=== PATIENT | male | born 1980 | race Caucasian/White ===

== ENCOUNTER 2017-05-03 23:53 | Emergency (ER) | payer MEDICAID ==
[~2017-05-03] VITALS: Ht 177.8 cm; Wt 77.1 kg
[2017-05-04] VITALS: BP 124/89
[2017-05-04 00:12] LABS: Urine RBC None Seen /hpf (0 - 3)
[2017-05-04 00:17] LABS: Urine Bilirubin Negative (Negative); Urine Blood TRACE /uL (Negative); Urine Color Yellow (Yellow); Urine Glucose Normal (Normal); Urine Ketone TRACE (Negative); Urine Nitrite Negative (Negative); Urine Urobilinogen Normal (Negative)
== END 2017-05-04 01:10 | disposition left against medical advice (07) ==
LOC: ER 23:55
DX: F10.10 Alcohol abuse, uncomplicated (principal); K92.0 Hematemesis; Z53.21 Procedure and treatment not carried out due to patient leaving prior to being seen by health care provider
CPT/HCPCS: 80307; 81001; J7030

== ENCOUNTER 2017-05-04 11:04 | Emergency (ER) | payer MEDICAID ==
[~2017-05-04] VITALS: Ht 177.8 cm; Wt 47.6 kg
[2017-05-04] MEDS ORDERED: SODIUM CHLORIDE 0.9% 1,000 ML IV ONE (11:45)
[2017-05-04] MEDS ORDERED: LORazepam 2MG/ML-1ML VIAL IV ONE (11:45)
[2017-05-04 11:55] LABS: Basophils # (auto) 0 uL; Basophils % (auto) 0.4 % (0.0-2.0); Eosinophils # (auto) 0 uL; Hematocrit 43.3 % (41.0-53.0); Hemoglobin 15.3 g/dL (13.5-17.5); Lymphocytes # (auto) 0.3 uL; Lymphocytes % (auto) 2.4 % (10.0-50.0); Mean Corpuscular Hemoglobin 34.9 pg (28.0-32.0); Mean Corpuscular Hgb Conc. 35.4 g/dL (32.0-36.0); Mean Corpuscular Volume 98.6 fL (80.0-100.0); Mean Platelet Volume 7.8 fL (6.9-10.8); Neutrophils # (auto) 9.5 uL; Neutrophils % (auto) 88.2 % (37.0-80.0); Nucleated Red Blood Cells % 0.1 %; Red Cell Distribution Width 13.5 % (11.8-14.3); White Blood Cell 10.8 10^3/uL (4.4-10.8)
[2017-05-04] MEDS ORDERED: THIAMINE INJ 100 MG, MULTIPLE VITAMIN 10 ML, FOLIC ACID 1 MG, MAGNESIUM SULF SDV 50% 8 ... IV SCH ×5 (12:00)
[2017-05-04 12:15] LABS: Albumin 3.8 g/dL (3.4-5.0); BUN/Creatinine Ratio 6.9; Calcium 8.8 mg/dL (8.5-10.1); Potassium 3.3 mmol/L (3.5-5.1); Salicylate 1.8 mg/dL (2.8-20.0); Urine Bilirubin Negative (Negative); Urine Blood 2+ /uL (Negative); Urine Color Yellow (Yellow); Urine Glucose 1+ mg/dL (Normal); Urine Hyaline Cast MOD /lpf (0 - 2); Urine Ketone 2+ (Negative); Urine Mucus FEW (None Seen); Urine Nitrite Negative (Negative); Urine RBC 5 /hpf (0 - 3)
[2017-05-04 12:18] LABS: Bilirubin, Total 0.9 mg/dL (0.2-1.0); Total Protein 9.7 g/dL (6.4-8.2)
[2017-05-04 12:21] LABS: Acetaminophen < 2.0 ug/mL (10-30)
[2017-05-04 12:25] LABS: Platelet Count (auto) 36 10^3/uL (140-450)
[2017-05-04 12:28] LABS: Platelet Estimate Decreased
[2017-05-04 13:43] VITALS: BP 128/75
== END 2017-05-04 14:12 | disposition home or self-care (01) ==
LOC: ER 11:04
DX: F10.239 Alcohol dependence with withdrawal, unspecified (principal); Y90.8 Blood alcohol level of 240 mg/100 ml or more; F12.10 Cannabis abuse, uncomplicated; F17.210 Nicotine dependence, cigarettes, uncomplicated
CPT/HCPCS: 36415; 80053; 80307; 80320; 80329; 81001; 85025; 93005; 96365; 96366; 96375; 99285; J2060; J3411; J3475; J7030

== ENCOUNTER 2017-05-04 21:45 | Emergency (ER) | payer MEDICAID ==
[~2017-05-04] VITALS: Ht 177.8 cm; Wt 52.2 kg
[2017-05-04] MEDS ORDERED: LORazepam 2MG/ML-1ML VIAL ONE (22:10)
[2017-05-04] MEDS ORDERED: SODIUM CHLORIDE 0.9% 1,000 ML IVB ONE (22:25)
[2017-05-04] MEDS ORDERED: LORazepam 2MG/ML-1ML VIAL IV ONE ×2 (22:30→23:30)
[2017-05-04 22:50] LABS: Basophils # (auto) 0 uL; Basophils % (auto) 0.4 % (0.0-2.0); Eosinophils # (auto) 0 uL; Hematocrit 41.7 % (41.0-53.0); Hemoglobin 14.6 g/dL (13.5-17.5); Lymphocytes # (auto) 0.4 uL; Lymphocytes % (auto) 3.6 % (10.0-50.0); Mean Corpuscular Hgb Conc. 35.1 g/dL (32.0-36.0); Mean Corpuscular Volume 99.9 fL (80.0-100.0); Mean Platelet Volume 8.6 fL (6.9-10.8); Monocytes # (auto) 0.8 uL; Neutrophils # (auto) 9.1 uL; Platelet Count (auto) 31 10^3/uL (140-450); Red Cell Distribution Width 13.3 % (11.8-14.3); White Blood Cell 10.3 10^3/uL (4.4-10.8)
[2017-05-04 23:00] LABS: Albumin 3.7 g/dL (3.4-5.0); BUN/Creatinine Ratio 7.1; Calcium 9.2 mg/dL (8.5-10.1); Potassium 3.2 mmol/L (3.5-5.1)
[2017-05-04 23:02] LABS: Bilirubin, Total 1.2 mg/dL (0.2-1.0); Total Protein 9.7 g/dL (6.4-8.2)
[2017-05-04] MEDS ORDERED: MVI in SODIUM CHLORIDE 0.9% 1,010 ML ONE (23:19)
[2017-05-04] MEDS ORDERED: MULTIPLE VITAMIN 10 ML in SODIUM CHLORIDE 0.9% 1,000 ML IV ONE (23:30)
[2017-05-05] MEDS ORDERED: THIAMINE HCL 100 MG/ML 2ML VIAL IV ONE (00:45)
[2017-05-05] MEDS ORDERED: ALPRAZolam 0.5 MG TAB PO ONE (01:45)
[2017-05-05] MEDS ORDERED: NICOTINE 21MG/24 HR TOPICAL PATCH TD ONE (04:15)
[2017-05-05] MEDS ORDERED: POTASSIUM CHL 20 Meq TABLET PO ONE ×2 (06:12→06:15)
[2017-05-05 06:24] VITALS: BP 156/94
[2017-05-05] MEDS ORDERED: THIAMINE INJ 100 MG, MULTIPLE VITAMIN 10 ML, FOLIC ACID 1 MG, MAGNESIUM SULF SDV 50% 8 ... IV SCH ×5 (12:00)
== END 2017-05-05 04:32 | disposition home or self-care (01) ==
LOC: EDBD 21:45 → ER 21:48
DX: F10.239 Alcohol dependence with withdrawal, unspecified (principal); F10.229 Alcohol dependence with intoxication, unspecified; Y90.3 Blood alcohol level of 60-79 mg/100 ml; F41.9 Anxiety disorder, unspecified; R45.1 Restlessness and agitation; F17.210 Nicotine dependence, cigarettes, uncomplicated
CPT/HCPCS: 36415; 80053; 80307; 80320; 85025; 96361; 96365; 96366; 96375; 96376; 99285; J2060; J3411; J3475; J7030